=== PATIENT | male | born 1995 | race Caucasian/White ===

== ENCOUNTER 2019-03-22 11:25 | Emergency (ER) | payer BC ==
[~2019-03-22] VITALS: Ht 185.4 cm; Wt 74.8 kg
[2019-03-22 11:40] VITALS: BP_SYST 126
--- NOTE | 2019-03-22 11:40 | NUR ---
Patient to ER bed 1 to gown for evaluation. Side rails up. Report given to RUSTY Mayers.
--- NOTE | 2019-03-22 11:45 | NUR ---
JASWINDER Bond at bedside examining patient.
--- NOTE | 2019-03-22 11:58 | NUR ---
Patient is awake, alert, and oriented x4. Patient reports hearing loss in right ear starting 2 days ago, he denies pain at this time. Patient reports a history of ear infections.
--- NOTE | 2019-03-22 12:34 | NUR ---
Patient given written and verbal discharge instructions and verbalizes understanding. ER MD discussed with patient the results and treatment provided. Patient in stable condition. ID arm band removed. Patient educated on pain management and to follow up with PMD. Pain Scale 0/10. Opportunity for questions provided and answered. Medication side effect fact sheet provided.
[2019-03-22 12:35] VITALS: BP_SYST 120
== END 2019-03-22 12:34 | disposition home or self-care (01) ==
LOC: SED 11:25
DX: H61.23 Impacted cerumen, bilateral (principal); Z88.1 Allergy status to other antibiotic agents; Z88.8 Allergy status to other drugs, medicaments and biological substances
CPT/HCPCS: 99283